=== PATIENT | male | born 1955 | race Caucasian/White ===

== ENCOUNTER → 2019-11-03 16:49 | Outpatient (CLI) | payer BC, SELFPAY ==
[2019-11-03 17:58] LABS: Anion Gap 17.2 mEq/L (5-15); Blood Urea Nitrogen 18 mg/dl (9-20); Calcium 10.2 mg/dl (8.4-10.2); Carbon Dioxide 21 mmol/L (22.0-30.0); Chloride 108 mmol/L (98-107); Chol/HDL Ratio 3.1 (1-3.5); Cholesterol 162 mg/dl (140-200); Estimated Glomerular Filt Rate 75 ml/min (>60); GFR (African American) 91 ML/MIN (>60); Glucose 97 mg/dl (74-100); HDL Cholesterol 53 mg/dl (40-60); Iron 80 ug/dL (49-181); Potassium 4.2 mmoL/L (3.5-5.1); Sodium 142 mmol/L (136-145); Triglycerides 195 mg/dl (30-150); VLDL Cholesterol 39 mg/dL (0-40)
[2019-11-03 18:09] LABS: Direct LDL Cholesterol 90.61 mg/dL (100-129)
[2019-11-05 11:00] LABS: PSA, Free 0.23 ng/mL
== END ==
PROVIDERS: Visit Provider Family Medicine
DX: R03.0 Elevated blood-pressure reading, without diagnosis of hypertension (principal); E78.5 Hyperlipidemia, unspecified; R53.83 Other fatigue; Z12.5 Encounter for screening for malignant neoplasm of prostate
CPT/HCPCS: 36415; 80048; 80061; 83540; 84153; 84154

== ENCOUNTER → 2021-05-26 16:00 | Outpatient (CLI) | payer BC, SELFPAY ==
[2021-05-26 16:13] LABS: Basophils # 0.1 K/mm3 (0-0.2); Basophils % 1.7 % (0.1-2.0); Eosinophils # 0.4 K/mm3 (0.0-0.4); Eosinophils % 4.4 % (0.1-12.0); Hematocrit 47.7 % (42.0-52.0); Hemoglobin 15.7 g/dL (14.1-18.0); Lymphocytes # 2.5 K/mm3 (0.7-4.5); Lymphocytes % 30.5 % (10-50); Mean Corpuscular HGB Conc 32.8 g/dL (31.8-35.4); Mean Corpuscular Hemoglobin 31.1 pg (27.0-31.2); Mean Platelet Volume 7.8 fl (7.4-10.4); Monocytes # 0.6 K/mm3 (0.1-1.0); Monocytes % 6.7 % (1.7-9.3); Neutrophils # 4.7 K/mm3 (1.8-7.8); Neutrophils % 56.7 % (37.0-80.0); Platelet Count 271 K/mm3 (142-424); Red Blood Count 5.02 M/mm3 (4.60-6.20); Red Cell Distribution Width 13.7 % (11.5-17.5); White Blood Count 8.3 K/mm3 (4.8-10.8)
[2021-05-26 17:44] LABS: Iron 88 ug/dL (49-181)
[2021-05-26 18:20] LABS: Ferritin 453 ng/ml (17.9-464)
== END ==
PROVIDERS: PCP Family Medicine; Visit Provider Family Medicine
DX: E83.118 Other hemochromatosis (principal)
CPT/HCPCS: 36415; 82728; 83540; 85025

== ENCOUNTER 2021-06-02 15:46 | Outpatient (CLI) | payer BC, SELFPAY ==
[2021-06-02 16:10] VITALS: BP 155/92; PULSE 87; RESP 18; TEMP 36.4; O2SAT 97
[2021-06-02 16:34] VITALS: BP 139/87; PULSE 79; RESP 18; O2SAT 97
== END 2021-06-02 16:34 | disposition home or self-care (01) ==
LOC: INF 15:46
PROVIDERS: PCP Family Medicine; Visit Provider Family Medicine
DX: E83.119 Hemochromatosis, unspecified (principal)
CPT/HCPCS: 99195

== ENCOUNTER → 2021-06-29 16:03 | Outpatient (CLI) | payer BC, SELFPAY ==
[2021-06-29 16:27] LABS: Basophils # 0.1 K/mm3 (0-0.2); Basophils % 1.2 % (0.1-2.0); Eosinophils # 0.3 K/mm3 (0.0-0.4); Eosinophils % 3.2 % (0.1-12.0); Hematocrit 44.2 % (42.0-52.0); Hemoglobin 15.2 g/dL (14.1-18.0); Lymphocytes # 2.1 K/mm3 (0.7-4.5); Lymphocytes % 21.7 % (10-50); Mean Corpuscular HGB Conc 34.4 g/dL (31.8-35.4); Mean Corpuscular Hemoglobin 31.2 pg (27.0-31.2); Mean Corpuscular Volume 90.6 fl (80-94); Mean Platelet Volume 7.8 fl (7.4-10.4); Monocytes # 0.6 K/mm3 (0.1-1.0); Monocytes % 5.7 % (1.7-9.3); Neutrophils # 6.6 K/mm3 (1.8-7.8); Neutrophils % 68.2 % (37.0-80.0); Platelet Count 278 K/mm3 (142-424); Red Blood Count 4.88 M/mm3 (4.60-6.20); Red Cell Distribution Width 13.2 % (11.5-17.5); White Blood Count 9.7 K/mm3 (4.8-10.8)
[2021-06-29 17:14] LABS: Iron 46 ug/dL (49-181)
[2021-06-29 17:51] LABS: Ferritin 346 ng/ml (17.9-464)
== END ==
PROVIDERS: PCP Family Medicine; Visit Provider Family Medicine
DX: E83.118 Other hemochromatosis (principal)
CPT/HCPCS: 36415; 82728; 83540; 85025

== ENCOUNTER 2021-07-04 14:13 | Outpatient (CLI) | payer BC, SELFPAY ==
[2021-07-04 14:15] VITALS: BP 119/90; PULSE 84; RESP 18
[2021-07-04 15:05] VITALS: BP 135/95; PULSE 94; RESP 18
== END 2021-07-04 15:05 | disposition home or self-care (01) ==
LOC: INF 14:14
PROVIDERS: PCP Family Medicine; Visit Provider Family Medicine
DX: E83.119 Hemochromatosis, unspecified (principal)
CPT/HCPCS: 99195

== ENCOUNTER → 2021-07-27 15:50 | Outpatient (CLI) | payer BC, SELFPAY ==
[2021-07-27 16:24] LABS: Basophils # 0.1 K/mm3 (0-0.2); Basophils % 1.3 % (0.1-2.0); Eosinophils # 0.3 K/mm3 (0.0-0.4); Eosinophils % 3.8 % (0.1-12.0); Hematocrit 42.4 % (42.0-52.0); Hemoglobin 14.1 g/dL (14.1-18.0); Lymphocytes # 2.3 K/mm3 (0.7-4.5); Lymphocytes % 28.9 % (10-50); Mean Corpuscular HGB Conc 33.3 g/dL (31.8-35.4); Mean Corpuscular Hemoglobin 31.1 pg (27.0-31.2); Mean Corpuscular Volume 93.3 fl (80-94); Mean Platelet Volume 8.1 fl (7.4-10.4); Monocytes # 0.5 K/mm3 (0.1-1.0); Neutrophils # 4.7 K/mm3 (1.8-7.8); Platelet Count 293 K/mm3 (142-424); Red Blood Count 4.54 M/mm3 (4.60-6.20); Red Cell Distribution Width 13.4 % (11.5-17.5); White Blood Count 7.9 K/mm3 (4.8-10.8)
[2021-07-27 16:43] LABS: Iron 67 ug/dL (49-181)
[2021-07-27 19:38] LABS: Ferritin 308 ng/ml (17.9-464)
== END ==
PROVIDERS: Visit Provider Family Medicine
DX: E83.118 Other hemochromatosis (principal)
CPT/HCPCS: 36415; 82728; 83540; 85025

== ENCOUNTER 2021-08-02 14:39 | Outpatient (CLI) | payer BC, SELFPAY ==
[2021-08-02 15:14] VITALS: BP 153/84; PULSE 69; RESP 18; TEMP 36.7; O2SAT 99
[2021-08-02 15:33] VITALS: BP 138/80; PULSE 62; RESP 18; O2SAT 99
== END 2021-08-02 15:33 | disposition home or self-care (01) ==
PROVIDERS: Visit Provider Family Medicine
DX: E83.119 Hemochromatosis, unspecified (principal)
CPT/HCPCS: 99195

== ENCOUNTER → 2021-08-29 16:08 | Outpatient (CLI) | payer BC, SELFPAY ==
[2021-08-29 17:20] LABS: Basophils # 0.1 K/mm3 (0-0.2); Basophils % 1.6 % (0.1-2.0); Eosinophils # 0.3 K/mm3 (0.0-0.4); Hematocrit 41.7 % (42.0-52.0); Hemoglobin 13.8 g/dL (14.1-18.0); Lymphocytes # 2.1 K/mm3 (0.7-4.5); Lymphocytes % 31.2 % (10-50); Mean Corpuscular HGB Conc 33.1 g/dL (31.8-35.4); Mean Corpuscular Hemoglobin 31.5 pg (27.0-31.2); Mean Corpuscular Volume 95.2 fl (80-94); Mean Platelet Volume 8.3 fl (7.4-10.4); Monocytes # 0.5 K/mm3 (0.1-1.0); Monocytes % 6.9 % (1.7-9.3); Neutrophils # 3.7 K/mm3 (1.8-7.8); Neutrophils % 56.3 % (37.0-80.0); Platelet Count 268 K/mm3 (142-424); Red Blood Count 4.38 M/mm3 (4.60-6.20); Red Cell Distribution Width 13.7 % (11.5-17.5); White Blood Count 6.6 K/mm3 (4.8-10.8)
[2021-08-29 18:38] LABS: Iron 67 ug/dL (49-181)
[2021-08-29 19:14] LABS: Ferritin 233 ng/ml (17.9-464)
== END ==
PROVIDERS: PCP Nurse Practitioner Family; Visit Provider Nurse Practitioner Family
DX: E83.119 Hemochromatosis, unspecified (principal)
CPT/HCPCS: 36415; 82728; 83540; 85025

== ENCOUNTER 2021-09-06 15:47 | Outpatient (CLI) | payer BC, SELFPAY ==
[2021-09-06 15:45] VITALS: BP 147/85; PULSE 72; RESP 18; TEMP 36.4; O2SAT 98
[2021-09-06 16:42] VITALS: BP 148/86; PULSE 67; RESP 18; O2SAT 99
== END 2021-09-06 16:42 | disposition home or self-care (01) ==
LOC: INF 15:48
PROVIDERS: PCP Family Medicine; Visit Provider Family Medicine
DX: E83.119 Hemochromatosis, unspecified (principal)
CPT/HCPCS: 99195

== ENCOUNTER → 2022-02-07 16:22 | Outpatient (CLI) | payer BC, SELFPAY ==
[2022-02-07 16:58] LABS: Basophils # 0.1 K/mm3 (0-0.2); Basophils % 1.6 % (0.1-2.0); Eosinophils # 0.3 K/mm3 (0.0-0.4); Eosinophils % 3.3 % (0.1-12.0); Hematocrit 45.6 % (42.0-52.0); Lymphocytes # 2.2 K/mm3 (0.7-4.5); Lymphocytes % 28.1 % (10-50); Mean Corpuscular HGB Conc 32.8 g/dL (31.8-35.4); Mean Corpuscular Hemoglobin 30.3 pg (27.0-31.2); Mean Corpuscular Volume 92.3 fl (80-94); Mean Platelet Volume 7.9 fl (7.4-10.4); Monocytes # 0.5 K/mm3 (0.1-1.0); Monocytes % 6.7 % (1.7-9.3); Neutrophils # 4.8 K/mm3 (1.8-7.8); Neutrophils % 60.4 % (37.0-80.0); Platelet Count 299 K/mm3 (142-424); Red Blood Count 4.94 M/mm3 (4.60-6.20); Red Cell Distribution Width 14.2 % (11.5-17.5)
[2022-02-07 17:17] LABS: Iron 56 ug/dL (49-181)
[2022-02-07 17:54] LABS: Ferritin 246 ng/ml (17.9-464)
== END ==
PROVIDERS: PCP Family Medicine; Visit Provider Family Medicine
DX: E83.119 Hemochromatosis, unspecified (principal)
CPT/HCPCS: 36415; 82728; 83540; 85025

== ENCOUNTER 2023-01-23 07:31 | Day surgery (SDC) | payer MEDICARE, SELFPAY ==
[2023-01-22 10:07] VITALS: BMI 28.4
[2023-01-23] VITALS (7 sets, daily range): BP systolic 112–168; BP diastolic 65–98; PULSE 57–73; RESP 14–18; TEMP 36.3–36.7; O2SAT 96–99
--- NOTE | 2023-01-23 08:04 | EXP.ANES.CKL ---
[facility] Disclaimer: The information contained in this section may have been updated after the patient was seen, as this information can be updated by other users. Medical History Hemochromatosis Hyperlipidemia Surgical History (Updated 01/23/23 @ 07:49 by Aric Diaz RN) History of appendectomy History of hip surgery Family History Other Family history of cancer Lung cancer Social History Smoking Status: Former smoker alcohol intake: never substance use type: denies use current occupational status: employed Travel in the last 8 weeks: Inside the [place] household members: spouse housing: house caffeine: Yes [facility] Anesthesia Checklist Patient Identification Patient Identification: Arm Band Structural Data Admitted From: Home Planned Operative Procedure/s: Colonoscopy Consent for Planned Operative Procedure(s) Verified: Yes Verified Documents: Surgical Consent and History and Physical NPO Status Verified Time NPO: 00:00 Additional verifications Anesthesia Reactions: No Airway Assessment Mallampati Score:: Class I C-Spine Mobility Assessed: Yes TMJ Mobility Assessed: Yes Dentition: Good Dentition Neurological Assessment Level of Consciousness: Awake and Alert Anesthesia Plan Anesthesia Risk discussed: Yes Anesthesia Plan: Verified ASA Class: II Anesthesia Type: MAC
--- NOTE | 2023-01-23 09:19 | HMH.SCOPE ---
Procedure: Date: 01/23/23 Patient Date of :: 1955 Procedure Performed:: Colonoscopy Indications:: History of polyps Performing Provider:: Luke Corrales MD Referring Provider:: . Sedation:: Monitored anesthesia care Procedure:: After informed consent was obtained the patient was taken to the endoscopy suite. Sedation ensued after the patient was transferred to the left lateral decubitus position. Pulse, blood pressure, and oxygen saturation were monitored throughout the procedure. Digital rectal exam revealed no significant abnormality. The colonoscope was placed in position. The entire colon was evaluated. The colonoscope was carefully removed and the patient was transferred to recovery in stable condition. Please see findings and specimens below for detail. Findings:: Bowel preparation moderate to poor Hemorrhoidal tag/cushions Sigmoid and left colonic diverticulosis Mildly nodular/firm prostate Complex polyps (see specimens) Specimens:: Complex sessile right colon polyp (cold snare) Lobulated sessile polyp at 35 cm (cold snare) Recommendations:: Timing of repeat colonoscopy is pending pathology but likely be between 1-2 years with extended bowel preparation secondary to history of large complex polyps and moderate to poor bowel preparation. Discussion will be ongoing with regard to mildly nodular somewhat firm prostate. Complications:: No immediate Estimated blood obtained (mL): 1 Colonoscopy Component Colonoscopy Component Was a colonoscopy performed during today's procedure?: Yes Recommended follow up colonoscopy of at least 10 years?: No If no, follow up colonoscopy recommended in ___ years?: 1-2 Reason for not recommending >/= 10 yr follow-up interval?: (See above)
== END 2023-01-23 11:10 | disposition home or self-care (01) ==
PROVIDERS: PCP Emergency Medicine; Visit Provider Surgery
PROC: 0DJD8ZZ Inspection of Lower Intestinal Tract, Via Natural or Artificial Opening Endoscopic (ICD-10-PCS; principal; 2023-01-23 11:30)
DX: Z12.11 Encounter for screening for malignant neoplasm of colon (principal); Z86.010 Personal history of colon polyps; K57.30 Diverticulosis of large intestine without perforation or abscess without bleeding; D12.2 Benign neoplasm of ascending colon; D12.5 Benign neoplasm of sigmoid colon
CPT/HCPCS: 45385; 88305; J2704

== ENCOUNTER → 2023-01-30 22:51 | Outpatient (CLI) | payer MEDICARE, SELFPAY ==
[2023-01-30 13:25] LABS: Basophils # 0.1 K/mm3 (0-0.2); Eosinophils # 0.3 K/mm3 (0.0-0.4); Eosinophils % 2.9 % (0.1-12.0); Hematocrit 49.9 % (42.0-52.0); Hemoglobin 16.2 g/dL (14.1-18.0); Lymphocytes # 2.1 K/mm3 (0.7-4.5); Lymphocytes % 22.5 % (10-50); Mean Corpuscular HGB Conc 32.5 g/dL (31.8-35.4); Mean Corpuscular Hemoglobin 30.6 pg (27.0-31.2); Mean Corpuscular Volume 94.3 fl (80-94); Mean Platelet Volume 8.5 fl (7.4-10.4); Monocytes # 0.6 K/mm3 (0.1-1.0); Neutrophils # 6.2 K/mm3 (1.8-7.8); Neutrophils % 67.5 % (37.0-80.0); Platelet Count 250 K/mm3 (142-424); Red Blood Count 5.29 M/mm3 (4.60-6.20); Red Cell Distribution Width 13.5 % (11.5-17.5); White Blood Count 9.1 K/mm3 (4.8-10.8)
[2023-01-30 13:52] LABS: Chloride 105 mmol/L (98-107)
[2023-01-30 13:53] LABS: Potassium 4.5 mmoL/L (3.5-5.1); Sodium 143 mmol/L (136-145)
[2023-01-30 13:55] LABS: Alanine Aminotransferase 21 U/L (12-78); Aspartate Amino Transferase 23 U/L (17-59); Blood Urea Nitrogen 14 mg/dl (9-20); Estimated Glomerular Filt Rate 75 ml/min (>60); GFR (African American) 90 ML/MIN (>60)
[2023-01-30 13:56] LABS: Albumin Level 4.4 g/dl (3.5-5.0); Albumin/Globulin Ratio 1.5 (1.1-1.8); Alkaline Phosphatase 109 U/L (38-126); Anion Gap 14.5 mEq/L (5-15); Bilirubin,Total 0.9 mg/dl (0.2-1.3); Calcium 9.6 mg/dl (8.4-10.2); Carbon Dioxide 28 mmol/L (22.0-30.0); Cholesterol 182 mg/dl (140-200); Glucose 106 mg/dl (74-100); HDL Cholesterol 46 mg/dl (40-60); Total Protein,Serum 7.4 g/dl (6.3-8.2); Triglycerides 128 mg/dl (30-150); VLDL Cholesterol 26 mg/dL (0-40)
[2023-01-30 14:07] LABS: Direct LDL Cholesterol 93.45 mg/dL (100-129)
[2023-01-30 14:26] LABS: Thyroid Stimulating Hormone 2.76 uIU/mL (0.465-4.68)
[2023-01-30 16:53] LABS: 25-OH Vitamin D, Total 34.3 ng/mL (30-100)
[2023-01-30 17:39] LABS: Prostate Specific Ag Screen 1.7 ng/ml (0.0-4.0)
== END ==
PROVIDERS: PCP Emergency Medicine; Visit Provider Emergency Medicine
DX: E55.9 Vitamin D deficiency, unspecified (principal); E78.00 Pure hypercholesterolemia, unspecified; Z12.5 Encounter for screening for malignant neoplasm of prostate
CPT/HCPCS: 80053; 80061; 82306; 84443; 85025; G0103

== ENCOUNTER 2023-08-09 12:35 | Outpatient (CLI) | payer MEDICARE, SELFPAY ==
[2023-08-09 12:53] LABS: Basophils # 0.1 K/mm3 (0-0.2); Eosinophils # 0.2 K/mm3 (0.0-0.4); Eosinophils % 2.6 % (0.1-12.0); Hematocrit 47.4 % (42.0-52.0); Hemoglobin 15.9 g/dL (14.1-18.0); Lymphocytes # 2.3 K/mm3 (0.7-4.5); Lymphocytes % 31.4 % (10-50); Mean Corpuscular HGB Conc 33.7 g/dL (31.8-35.4); Mean Corpuscular Hemoglobin 32.1 pg (27.0-31.2); Mean Corpuscular Volume 95.3 fl (80-94); Mean Platelet Volume 7.6 fl (7.4-10.4); Monocytes # 0.5 K/mm3 (0.1-1.0); Monocytes % 6.5 % (1.7-9.3); Neutrophils # 4.3 K/mm3 (1.8-7.8); Neutrophils % 58.5 % (37.0-80.0); Platelet Count 257 K/mm3 (142-424); Red Blood Count 4.97 M/mm3 (4.60-6.20); Red Cell Distribution Width 13.3 % (11.5-17.5); White Blood Count 7.4 K/mm3 (4.8-10.8)
[2023-08-09 13:27] LABS: Alanine Aminotransferase 23 U/L (12-78); Albumin Level 4.5 g/dl (3.5-5.0); Albumin/Globulin Ratio 1.6 (1.1-1.8); Alkaline Phosphatase 125 U/L (38-126); Anion Gap 13.2 mEq/L (5-15); Aspartate Amino Transferase 26 U/L (17-59); Bilirubin,Total 1.5 mg/dl (0.2-1.3); Blood Urea Nitrogen 14 mg/dl (9-20); Carbon Dioxide 24 mmol/L (22.0-30.0); Chloride 105 mmol/L (98-107); Chol/HDL Ratio 4.6 (1-3.5); Cholesterol 204 mg/dl (140-200); Estimated Glomerular Filt Rate 75 ml/min (>60); GFR (African American) 90 ML/MIN (>60); Globulin 2.9 g/dL (1.3-3.2); Glucose 99 mg/dl (74-100); HDL Cholesterol 44 mg/dl (40-60); Potassium 4.2 mmoL/L (3.5-5.1); Sodium 138 mmol/L (136-145); Total Protein,Serum 7.4 g/dl (6.3-8.2); Triglycerides 100 mg/dl (30-150); VLDL Cholesterol 20 mg/dL (0-40)
== END 2023-08-09 23:59 ==
PROVIDERS: PCP Internal Medicine; Visit Provider Internal Medicine
DX: E83.119 Hemochromatosis, unspecified; E78.5 Hyperlipidemia, unspecified; Z13.220 Encounter for screening for lipoid disorders
CPT/HCPCS: 80053; 80061; 85025

== ENCOUNTER 2024-05-27 06:26 | Day surgery (SDC) | payer MEDICARE, SELFPAY ==
--- NOTE | 2024-05-21 16:59 | SUR.PREOP ---
LEFT MESSAGE W/ CALL BACK #J ON 05/21/24
[2024-05-22 13:27] VITALS: BMI 29.0
[2024-05-27] MEDS: LACTATED RINGERS 1000ML 1,000 ML 25 ML IV (06:43)
[2024-05-27 06:49] VITALS: BP 149/94; PULSE 112; RESP 18; TEMP 36.6; O2SAT 96
--- NOTE | 2024-05-27 07:02 | HMH.SCOPE ---
Procedure: Date: 05/27/24 Patient Date of :: 1955 Procedure Performed:: Colonoscopy Indications:: History of colon polyps Note: His most recent colonoscopy in January 2023 was somewhat complicated by moderate to poor bowel preparation. Left-sided diverticulosis and hemorrhoidal tags/cushions noted. A mildly nodular somewhat firm prostate was also noted. He states that he has had conversations with his primary care provider regarding prostate health and has been checked out . Complex adenomatous polyps of the right colon and at 35 cm were excised. Performing Provider:: Luke Corrales MD Referring Provider:: . Sedation:: Monitored anesthesia care Procedure:: After informed consent was obtained the patient was taken to the endoscopy suite. Sedation ensued after the patient was transferred to the left lateral decubitus position. Pulse, blood pressure, and oxygen saturation were monitored throughout the procedure. Digital rectal exam revealed no significant abnormality. The colonoscope was placed in position. The entire colon was evaluated. The colonoscope was carefully removed and the patient was transferred to recovery in stable condition. Please see findings and specimens below for detail. Findings:: Bowel preparation fair Fairly severe spasticity/lack of relaxation Unchanged hemorrhoidal cushions/tags Unchanged diverticulosis Somewhat enlarged and somewhat firm prostate (less palpable nodularity versus prior evaluation) Specimens:: None Recommendations:: Repeat colonoscopy in 3-5 years secondary to history of polyps, as well as, spasticity/lack of relaxation. Complications:: No immediate Estimated blood obtained (mL): 0 Colonoscopy Component Colonoscopy Component Was a colonoscopy performed during today's procedure?: Yes Recommended follow up colonoscopy of at least 10 years?: No If no, follow up colonoscopy recommended in ___ years?: (See above) Reason for not recommending >/= 10 yr follow-up interval?: (See above)
--- NOTE | 2024-05-27 07:14 | P.PNANES_ITS ---
[facility] Disclaimer: The information contained in this section may have been updated after the patient was seen, as this information can be updated by other users. Medical History Hypertension Hyperlipidemia Hemochromatosis Surgical History Hx of colonoscopy History of appendectomy History of hip surgery Family History Other Family history of cancer Lung cancer Social History Smoking Status: Former smoker alcohol intake: never substance use type: denies use current occupational status: retired Travel in the last 8 weeks: None household members: spouse housing: house caffeine: Yes Have you lived/traveled outside [place] in past 30 days?: No Contact w/someone who lives/traveled outside [place] past 30 days?: No Exposure to someone with infectious disease in past 14 days?: No Do you have a fever (greater than 100.4 F or 38 C)?: No Have you tested positive for COVID-19: No Exposed to someone with COVID-19 in past 14 days?: No Do you have a sore throat?: No Do you have a cough?: No Do you have any weakness?: No Do you have any diarrhea?: No Are you experiencing any unusual bleeding?: No Do you have any muscle aches/pain?: No Do you have any abdominal pain?: No Are you experiencing loss of taste or smell?: No [facility] Anesthesia Checklist Patient Identification Patient Identification: Arm Band Structural Data Admitted From: Home Planned Operative Procedure/s: Colonoscopy Consent for Planned Operative Procedure(s) Verified: Yes Verified Documents: Surgical Consent and History and Physical NPO Status Verified Time NPO: 00:00 Additional verifications Anesthesia Reactions: No Airway Assessment Mallampati Score:: Class II C-Spine Mobility Assessed: Yes TMJ Mobility Assessed: Yes Dentition: Good Dentition Neurological Assessment Level of Consciousness: Awake, Alert and Appropriate Anesthesia Plan Anesthesia Risk discussed: Yes Anesthesia Plan: Verified ASA Class: II Anesthesia Type: MAC
[2024-05-27 07:20] VITALS: O2SAT 96
[2024-05-27 07:55] VITALS: BP 89/56; PULSE 85; RESP 16; TEMP 36.3; O2SAT 94
[2024-05-27 08:05] VITALS: BP 105/68; PULSE 86; RESP 18; O2SAT 97
[2024-05-27 08:15] VITALS: BP 109/75; PULSE 87; RESP 16; O2SAT 97
== END 2024-05-27 08:25 | disposition home or self-care (01) ==
PROVIDERS: PCP Internal Medicine; Visit Provider Surgery
PROC: 0DJD8ZZ Inspection of Lower Intestinal Tract, Via Natural or Artificial Opening Endoscopic (ICD-10-PCS; CPT 45378; principal; 2024-05-27 07:30)
DX: K57.30 Diverticulosis of large intestine without perforation or abscess without bleeding (principal); K64.9 Unspecified hemorrhoids; Z86.0100 Personal history of colon polyps, unspecified
CPT/HCPCS: 45378; J7120

== ENCOUNTER 2024-08-27 11:56 | Outpatient (CLI) | payer MEDICARE, SELFPAY ==
[2024-08-27 13:34] LABS: Basophils # 0.1 K/mm3 (0-0.2); Eosinophils # 0.2 K/mm3 (0.0-0.4); Eosinophils % 2.5 % (0.1-12.0); Hematocrit 42.5 % (42.0-52.0); Hemoglobin 14.6 g/dL (14.1-18.0); Lymphocytes % 28.9 % (10-50); Mean Corpuscular HGB Conc 34.4 g/dL (31.8-35.4); Mean Corpuscular Hemoglobin 31.3 pg (27.0-31.2); Mean Corpuscular Volume 91.2 fl (80-94); Mean Platelet Volume 10.2 fl (7.4-10.4); Monocytes # 0.6 K/mm3 (0.1-1.0); Monocytes % 8.7 % (1.7-9.3); Neutrophils % 58.5 % (37.0-80.0); Nucleated Red Blood Cells # 0 10^3/uL; Nucleated Red Blood Cells % 0 %; Platelet Count 284 K/mm3 (142-424); Red Blood Count 4.66 M/mm3 (4.60-6.20); Red Cell Distribution Width 13.1 % (11.5-17.5); Red Cell Distribution Width-SD 42.5 fL; White Blood Count 6.9 K/mm3 (4.8-10.8)
[2024-08-27 14:13] LABS: Alanine Aminotransferase 26 U/L (12-78); Albumin Level 4.6 g/dl (3.5-5.0); Albumin/Globulin Ratio 1.4 (1.1-1.8); Alkaline Phosphatase 116 U/L (38-126); Aspartate Amino Transferase 29 U/L (17-59); Bilirubin,Total 1.6 mg/dl (0.2-1.3); Blood Urea Nitrogen 14 mg/dl (9-20); Calcium 9.6 mg/dl (8.4-10.2); Carbon Dioxide 25 mmol/L (22.0-30.0); Chloride 103 mmol/L (98-107); Chol/HDL Ratio 4.1 (1-3.5); Cholesterol 184 mg/dl (140-200); Estimated Glomerular Filt Rate 74 ml/min (>60); GFR (African American) 90 ML/MIN (>60); Globulin 3.3 g/dL (1.3-3.2); Glucose 89 mg/dl (74-100); HDL Cholesterol 45 mg/dl (40-60); Potassium 4.7 mmoL/L (3.5-5.1); Total Protein,Serum 7.9 g/dl (6.3-8.2); Triglycerides 111 mg/dl (30-150); VLDL Cholesterol 22 mg/dL (0-40)
[2024-08-27 14:50] LABS: Anion Gap 16.7 mEq/L (5-15); Sodium 140 mmol/L (136-145)
[2024-08-27 15:09] LABS: Direct LDL Cholesterol 99.86 mg/dL (100-129)
[2024-08-27 15:47] LABS: Ferritin 534 ng/ml (17.9-464)
== END 2024-08-27 23:59 | disposition home or self-care (01) ==
LOC: LAB.DROPOF 08-28 09:28
PROVIDERS: PCP Internal Medicine; Visit Provider Internal Medicine
DX: E83.119 Hemochromatosis, unspecified (principal); E78.5 Hyperlipidemia, unspecified; Z13.220 Encounter for screening for lipoid disorders
CPT/HCPCS: 80053; 80061; 82728; 85025

== ENCOUNTER 2024-10-21 09:06 | Outpatient (CLI) | payer MEDICARE, SELFPAY ==
--- NOTE | 2024-10-21 09:09 | XR_ITS ---
FINAL REPORT CLINICAL HISTORY: Right knee pain COMPARISON: None FINDINGS: RIGHT KNEE Three views demonstrate no acute fracture or dislocation. There is advanced medial compartment joint space narrowing. There is moderate osteophyte formation at the medial joint margin. There is advanced narrowing of the lateral articular facet of the patellofemoral joint. No acute soft tissue abnormality is seen. IMPRESSION: Degenerative changes without acute bony abnormality. Reviewed, Interpreted and Dictated by Shayne Ventura MD Transcribed by Catina Forman Authenticated and . [facility]
--- NOTE | 2024-10-21 09:09 | XR_ITS ---
FINAL REPORT CLINICAL HISTORY: Left knee pain COMPARISON: None FINDINGS: LEFT KNEE Three views demonstrate no acute fracture or dislocation. There is advanced narrowing of the medial compartment joint space. There is moderate osteophyte formation at the medial joint margin. 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 There is a 3.0 cm ossific density in the popliteal fossa which may represent a large intra-articular loose body. IMPRESSION: Degenerative changes without acute bony abnormality. 3.0 cm ossific density in the popliteal fossa may represent a large intra-articular loose body. Reviewed, Interpreted and Dictated by Shayne Ventura MD Transcribed by Catina Forman Authenticated and [facility]
== END 2024-10-21 23:59 | disposition home or self-care (01) ==
LOC: RAD 09:07
PROVIDERS: PCP Internal Medicine; Visit Provider Physician Assistant Surgical
DX: M17.0 Bilateral primary osteoarthritis of knee (principal)
CPT/HCPCS: 73562

== ENCOUNTER 2024-11-06 08:30 | Outpatient (CLI) | payer MEDICARE, SELFPAY ==
[2024-11-06 08:34] VITALS: BMI 29.4
--- NOTE | 2024-11-06 09:30 | PC.NURSE ---
0845 Ferritin lab obtained via venipuncture to [facility] area. Patient here for possible therapeutic phlebotomy based on pending results.
[2024-11-06 09:36] LABS: Ferritin 458 ng/ml (17.9-464)
--- NOTE | 2024-11-06 10:55 | PC.NURSE ---
1035-IV started x3 with good blood return each time. Each time lab attempted to drain blood from IV, blood would not flow into bag for therapeutic phlebotomy. Pt opted to not be stuck anymore today, therefore theraputic phlebotomy was not performed. Dr Horne's office notified and they agreed to be in touch with pt for further instruction.
== END 2024-11-06 10:45 | disposition home or self-care (01) ==
LOC: INF 08:32
PROVIDERS: PCP Internal Medicine; Visit Provider Internal Medicine
DX: E83.119 Hemochromatosis, unspecified (principal); R79.89 Other specified abnormal findings of blood chemistry
CPT/HCPCS: 36415; 82728